=== PATIENT | male | born 1955 ===

== ENCOUNTER 2016-10-16 05:17 | Inpatient (IN) | payer OTHER ==
[2016-10-16] VITALS (19 sets, daily range): BP systolic 90–126; BP diastolic 50–75; PULSE 100–122; RESP 15–29; TEMP 100.3; Ht 170.2 cm; Wt 76.0 kg
[~2016-10-16] VITALS: Ht 170.2 cm; Wt 76.0 kg
[2016-10-16] MEDS ORDERED: ONDANSETRON 4 MG INJ IV PRN ×4 (05:30→22:30)
[2016-10-16] MEDS ORDERED: ACETAMINOPHEN 325 MG TAB PO PRN ×2 (05:30→22:30)
--- NOTE | 2016-10-16 05:40 | EN ---
Date/Time of Note Date/Time of Note DATE: 10/16/16 TIME: 05:38 ER Progress Note This is a 61-year-old male presenting from [facility] who will be boarding in the emergency room. The patient was seen at [facility] diagnosed with acute cholecystitis started on Zosyn and pain medication and presents for admission. He is capitated to our hospital but we do not have beds. He will be boarding in the emergency room. Upon arrival the patient has no complaints. General: Well developed, well nourished, no acute distress Head: Normocephalic, atraumatic Eyes: Pupils equally reactive, EOM intact ENT: Moist mucous membranes Neck: Supple, no lymphadenopathy Respiratory: Lungs clear bilaterally, no distress Cardiovascular: RRR, no murmurs, rubs, or gallops Abdominal: Soft, epigastric and right upper quadrant abdominal tenderness : Deferred MSK: No edema, no unilateral swelling, 5/5 strength Neurologic: Alert and oriented, moving all extremities, normal speech, no focal weakness, no cerebellar signs Skin: No rash Psych: Normal mood The patient is pending admission to the hospitalist team Accepting care team and consultations: I discussed the current laboratory data, diagnostic imaging and emergency care provided. Admitting team: Dr. Brunson Admitting team indication: Insurance directed DORIAN WILEY MD Oct 16, 2016 05:40
[2016-10-16] MEDS ORDERED: METF1000 PO (06:56)
[2016-10-16] MEDS ORDERED: LISI-313 PO (06:56)
[2016-10-16] MEDS ORDERED: ASPI-664 PO (06:57)
[2016-10-16] MEDS ORDERED: ATOR40TA68 PO (06:57)
[2016-10-16] MEDS ORDERED: LATA2.5D2 RIGHT EYE (06:58)
[2016-10-16] MEDS ORDERED: DESFLURANE 15 MIN ONE (07:00)
[2016-10-16] MEDS ORDERED: PIPER-TAZO 3.375 GM IV (PMX) 100 ML IVPB SCH ×2 (09:00→23:30)
[2016-10-16] MEDS: SOD CHLORIDE 0.9% 1,000 ML IV SCH (09:25)
[2016-10-16] MEDS: PIPER-TAZO 3.375 GM IV (PMX) 100 ML IVPB SCH ×2 (09:29→17:58)
[2016-10-16] MEDS ORDERED: HYPOGLYCEMIA PROTOCOL when Glucose is <70 mg/dL or symptomatic <90 mg/dL. XX ONE (09:30)
[2016-10-16] MEDS ORDERED: GLUCAGON 1 MG INJ IM PRN (09:30)
[2016-10-16] MEDS ORDERED: DEXTROSE 50% 50 ML SYRINGE IV PRN ×2 (09:30)
[2016-10-16] MEDS ORDERED: GLUCOSE GEL 15 GRAM TUBE BUCCAL PRN (09:30)
[2016-10-16] MEDS ORDERED: NACL 0.9% 3 ML SYG IV SCH (09:30)
[2016-10-16] MEDS ORDERED: GLUCOSE GEL 15 GRAM TUBE PO PRN ×2 (09:30)
[2016-10-16] MEDS ORDERED: Discontinue current oral sulfonylureas (glyburide, glipizide, and/or glimepiride) prior to XX ONE (09:30)
[2016-10-16] MEDS ORDERED: INSULIN ASPART [NOVOLOG] 3 ML PEN SC SCH (09:30)
[2016-10-16] MEDS: morphine 2 MG INJ IV PRN ×2 (09:34→17:37)
--- NOTE | 2016-10-16 09:37 | RADRPT ---
PROCEDURE: XR Chest 1 View. CLINICAL INDICATION: Shortness of breath and fever. TECHNIQUE: AP view of the chest was obtained. COMPARISON: None. FINDINGS: The cardiomediastinal silhouette is within normal limits. Elevated right hemidiaphragm is identified . Atelectasis is seen at the lung bases. No consolidations are identified. No pneumothorax is seen . Osseous structures are intact. IMPRESSION: Elevated right hemidiaphragm. Atelectasis at the lung bases. RPTAT: AA .Blake Vivas MD, MD Date Time Electronically viewed and signed by .Blake Vivas MD, on 10/16/2016 09:36 .P/
--- NOTE | 2016-10-16 09:49 | HP ---
Date/Time of Note Date/Time of Note DATE: 10/16/16 TIME: 09:38 Assessment/Plan VTE Prophylaxis VTE Prophylaxis Intervention: SCD's Assessment/Plan Chief Complaint/Hosp Course 1. Sepsis, most probably secondary to underlying cholecystitis. No evidence of any septic shock. The patient will be continued on antibiotics. The patient will be adequately hydrated. Will trend lactic acid levels. 2. Acute cholecystitis. The patient will be continued on empiric antibiotics. A general surgery consult has been obtained. The patient will be kept n.p.o. The patient was provided with adequate pain control. 3. Type 2 diabetes mellitus. Patient takes metformin at home. A hemoglobin A1c will be obtained. The patient's metformin will be held at this time. The patient will be started on sliding scale insulin. 4. Acute kidney injury. Most probably secondary to prerenal azotemia and underlying dehydration. The patient will be adequately hydrated. Nephrotoxic drugs will be used with caution. 5. Essential hypertension. The patient will be resumed on his home antihypertensives if his renal function is stable. 6. Dyslipidemia. The patient's statins will be held at this time because of underlying cholecystitis. Will obtain a fasting lipid panel. Plan: The patient will be admitted to inpatient medical surgical floor. The patient will be kept n.p.o. The patient will be started on DVT prophylaxis and gastrointestinal prophylaxis. The patient will remain a full code. Activities will be as tolerated. The rest of the patient's management will be based on the clinical course, inputs from consultants, and the results of diagnostic studies. Based on the patient's clinical presentation, he most probably requires at least 2 midnights' stay for further management and evaluation of his clinical presentation. The case and management of this patient was fully discussed with . Problems: HPI/ROS Admit Date/Time Admit Date/Time Hx of Present Illness Reason for admission: Abdominal pain. Consultants 1. Abhinav Jaime MD, General Surgery. This is a 61-year-old male with past medical history of type 2 diabetes mellitus, HTN, and dyslipidemia who went to a local emergency room because of right upper quadrant abdominal pain that has been going on for the past 3 days. The patient also verbalized 1 episode of nonbilious, nonbloody vomiting. The patient also verbalized subjective fevers. The patient denied any radiation of the pain to the back or elsewhere. Patient denied any prior history of any abdominal problems. The patient went to an outside ER where he was diagnosed with underlying cholecystitis. The patient was treated with IV Zosyn in the emergency room at the other facility. The patient was transferred to [facility] because of insurance reasons. The patient underwent a CT scan of the abdomen and pelvis at the outside facility that showed evidence of gallbladder sludge with gallbladder wall thickening and pericholecystic fluid. The patient was also noticed to have uncontrolled blood sugars at the other facility. The patient had evidence of some acute kidney injury from the labs at the other facility. In the emergency room at [facility] [the patient was held in the emergency room because of lack of inpatient beds], the patient was noticed to be febrile. The patient also had underlying sinus tachycardia. 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 Alcohol Use: none Smoking Status: Never smoker Drug Use: none Exam/Review of Systems Vital Signs Vitals Vital Signs Date Time Temp Pulse Resp B/P Pulse Ox O2 Delivery O2 Flow Rate FiO2 10/16/16 05:22 100.8 110 20 142/90 95 Exam Exam General: Adequately build 61 year-old male lying in bed in no apparent distress. HEENT: Normocephalic, atraumatic. Eyes: Anicteric sclerae, conjunctivae clear. ENT: Nasal septum midline, oral mucosa moist. Neck supple, no JVD noticed. Respiratory: Bilaterally clear breath sounds. No use of accessory muscles of respiration. No adventitious breath sounds. Cardiovascular: S1, S2 heard. No murmurs or gallops. Abdomen: Soft and nondistended. Bowel sounds positive in all 4 quadrants. Right upper quadrant tenderness. Genitourinary: Deferred. Extremities: No cyanosis, no clubbing, no edema. Peripheral pulses palpable. Neurologic: Cranial nerves II through XII grossly intact. The patient is awake, alert, and oriented. Skin: Normal skin turgor. No skin rashes. Medications Medications Current Medications Sodium Chloride (NS) 1,000 ml @ 125 mls/hr Q8H IV Last administered on 09:25; Admin Dose 125 MLS/HR; Start 10/16/16 at 09:10 Ondansetron HCl (Zofran Inj) 4 mg Q6H PRN IV NAUSEA AND/OR VOMITING; Start at 09:30 Acetaminophen (Tylenol Tab) 650 mg Q6H PRN PO PAIN LEVEL 1-3 OR FEVER; Start at 09:30 Morphine Sulfate (morphine) 2 mg Q4H PRN IV PAIN LEVEL 7-10 Last administered on 10/16/16 09:34; Admin Dose 2 MG; Start 10/16/16 at 09:30 Famotidine 20 mg 20 mg Q12 IV ; Start 10/16/16 at 21:00 Piperacillin Sod/ Tazobactam Sod (Zosyn 3.375gm/ 100 ml (Pmx)) 100 ml @ 200 mls /hr Q8 IVPB Last administered on 10/16/16 09:29; Admin Dose 200 MLS/HR; Start 10/16/16 at 09:30 Diagnostic Test (Pha) (Accu-Chek) 1 ea 02 XX ; Start 10/17/16 at 02:00 Insulin Aspart (Novolog Insulin Pen) NOVOLOG *MILD* ALGORITHM Q4H SC ; Start at 09:30 Miscellaneous Information 1 ea NOTE XX ; Start 10/16/16 at 09:30 Glucose (Glutose) 15 gm Q15M PRN PO DECREASED GLUCOSE; Start 10/16/16 at 09:30 Glucose (Glutose) 22.5 gm Q15M PRN PO DECREASED GLUCOSE; Start 10/16/16 at 09: 30 Dextrose (D50w Syringe) 25 ml Q15M PRN IV DECREASED GLUCOSE; Start 10/16/16 at 09:30 Dextrose (D50w Syringe) 50 ml Q15M PRN IV DECREASED GLUCOSE; Start 10/16/16 at 09:30 Glucagon (Glucagen) 1 mg Q15M PRN IM DECREASED GLUCOSE; Start 10/16/16 at 09:30 Glucose (Glutose) 15 gm Q15M PRN BUCCAL DECREASED GLUCOSE; Start 8/24/17 at 09 :30 ANDREW RUBI NP Oct 16, 2016 09:48
[2016-10-16] MEDS ORDERED: SOD CHLORIDE 0.9% 1,000 ML IV ONE (10:00)
--- NOTE | 2016-10-16 10:04 | RADRPT ---
PROCEDURE: Abdominal Ultrasound (right upper quadrant). CLINICAL INDICATION: Abdominal pain TECHNIQUE: Multiple real-time longitudinal and transverse images of the right upper quadrant of th e abdomen were acquired utilizing a curved array transducer. Images were reviewed on a high-resoluti on PACS workstation. COMPARISON: None FINDINGS: The liver is incompletely visualized. The visualized portions are within normal limits.. No focal masses are identified. There is borderline common bile duct dilatation, likely within normal limit s for a patient of this age. The common bile duct measures 6.4 mm in diameter. No gallstones are id entified. There is borderline nonspecific gallbladder wall thickening measuring 5 mm. The visualized portions of the pancreas are unremarkable with obscuration of the tail of the pancrea s. No free fluid is identified. There is no evidence of right hydronephrosis or renal calcification. The right kidney measures 11.4 cm in length. The visualized portions of the aorta and inferior vena cava are within normal limits. IMPRESSION: 1. Borderline common bile duct dilatation, likely within normal limits. Recommend correlation with serum bilirubin. 2. Borderline nonspecific gallbladder wall thickening. No gallstones identified. 3. Suboptimal visualization of the liver. 4. Otherwise unremarkable right upper quadrant ultrasound. RPTAT: KK .Artis Stiles MD, Date Time Electronically viewed and signed by .Artis Stiles MD, MD on 10/16/2016 10:03 .B/
[2016-10-16] MEDS ORDERED: hydrALAzine 20 MG INJ IV PRN ×2 (10:30→22:30)
[2016-10-16] MEDS: ACETAMINOPHEN 325 MG TAB PO PRN ×2 (10:49→19:06)
[2016-10-16 12:08] LABS: ABNORMAL IP MESSAGE 1; BASOPHILS % 0.2 % (0.0-2.0); HEMATOCRIT 31.3 % (42.0-52.0); LYMPHOCYTES # 0.9 10^3/ul (0.8-2.9); MEAN CORPUSCULAR HEMOGLOBIN 30.9 pg (29.0-33.0); MEAN CORPUSCULAR HGB CONC 35.1 g/dl (32.0-37.0); MEAN CORPUSCULAR VOLUME 87.9 fl (82.0-101.0); MEAN PLATELET VOLUME 11.1 fl (7.4-10.4); MONOCYTE # 1.6 10^3/ul (0.3-0.9); MONOCYTES % 8.8 % (0.0-11.0); NEUTROPHILS % 84.6 % (39.0-77.0); PLATELET COUNT 185 10^3/UL (140-415); POSITIVE DIFF @See below; RED BLOOD COUNT 3.56 10^6/ul (4.70-6.10); RED CELL DISTRIBUTION WIDTH 12.1 % (11.5-14.5); WHITE BLOOD COUNT 17.6 10^3/ul (4.8-10.8)
[2016-10-16 12:24] LABS: ALBUMIN 3.1 g/dl (3.3-4.9); ALBUMIN/GLOBULIN RATIO 0.93; BILIRUBIN,DIRECT 0.4 mg/dl (0.00-0.20); BILIRUBIN,INDIRECT 0.6 mg/dl (0-1.1); CALCIUM 7.7 mg/dl (8.4-10.2); CREATININE 0.84 mg/dl (0.61-1.24); POTASSIUM 3.8 mmol/L (3.5-5.1); TOTAL PROTEIN 6.4 g/dl (6.1-8.1)
[2016-10-16 12:26] LABS: MAGNESIUM 1.6 mg/dl (1.7-2.5)
[2016-10-16 12:27] LABS: INR 1.53; PROTIME 18.5 Sec (12.2-14.2); PT RATIO 1.4
[2016-10-16 12:37] LABS: CHOL/HDL RATIO 4.5 RATIO
[2016-10-16 13:09] LABS: ADD UMIC YES; UR ASCORBIC ACID 20 mg/dL (NEGATIVE); UR BILIRUBIN (Dip) NEGATIVE (NEGATIVE); UR BLOOD (Dip) NEGATIVE (NEGATIVE); UR CLARITY SLIGHTLY CLOUDY (CLEAR); UR COLOR AMBER (YELLOW); UR GLUCOSE (Dip) 3+ mg/dL (NEGATIVE); UR KETONES (Dip) 1+ mg/dL (NEGATIVE); UR LEUKOCYTE ESTERASE (Dip) NEGATIVE Leu/ul (NEGATIVE); UR NITRITE (Dip) NEGATIVE (NEGATIVE); UR RBC 1 /HPF (0-5); UR SPECIFIC GRAVITY (Dip) 1.023 (1.003-1.030); UR TOTAL PROTEIN (Dip) 2+ mg/dl (NEGATIVE); UR UROBILINOGEN (Dip) 2+ mg/dL (NEGATIVE)
[2016-10-16] MEDS ORDERED: MAGNESIUM SULFATE 2 GM/50 ML 50 ML IVPB ONE (13:30)
[2016-10-16] MEDS ORDERED: PHYTONADIONE 10 MG in DEXTROSE 5% 50 ML IVPB ONE (14:00)
--- NOTE | 2016-10-16 14:05 | CONS ---
Date/Time of Note Date/Time of Note DATE: 10/16/16 TIME: 13:59 Assessment/Plan Assessment/Plan Chief Complaint/Hosp Course 61-year-old male with acute cholecystitis * Ultrasound and CT scan were reviewed. Though the ultrasound does not show any gallstones, there is gallbladder wall thickening. The CT scan does show possible gallstone along with gallbladder wall thickening or pericholecystic fluid. I believe that there is a gallstone impacted in the neck of the gallbladder which is being missed by ultrasound. * Patient is febrile, with leukocytosis and signs of sepsis. Given his diabetes he is at high risk for quickly progressing to a gangrenous cholecystitis. Therefore, I would recommend urgent laparoscopic cholecystectomy ; possible open as medical necessity and definitive treatment to prevent further sequelae of gallstone disease which include, but are not limited to: Gangrenous cholecystitis, choledocholithiasis, gallstone pancreatitis, ascending cholangitis, sepsis, . This is been discussed with the patient in full detail along with all risks and benefits of the surgical procedure. He understands and agrees to proceed. * Continue n.p.o., aggressive IV fluid hydration, broad-spectrum intravenous antibiotics and pain control * Informed consent will be obtained and he will be scheduled for urgent surgical intervention. Problems: Consultation Date/Type/Reason Admit Date/Time Date of Consultation: Oct 16, 2016 Type of Consultation: GENERAL SURGERY Reason for Consultation Acute cholecystitis Hx of Present Illness Patient is a 61-year-old male with a history of diabetes who initially presented to [facility] complaining of a 2 day history of epigastric and right upper quadrant abdominal pain. This was associated with nausea and vomiting. He denies any diarrhea/constipation. He reports fever. He denies any similar episodes of pain in the past. The patient had an ultrasound which did not show any gallstones, however, did show gallbladder wall thickening. CT scan was done which did show the presence of gallstones as well as gallbladder wall thickening and pericholecystic fluid. He was also found to have a leukocytosis of 19,000 and was febrile. He was transferred to [facility] for insurance purposes. He is currently febrile with a T- max of 101.4. He is tachycardic. Blood pressure is stable. He remains with leukocytosis. He is still having some abdominal pain located in the right upper quadrant. A 14 point review of systems was conducted and was negative except for that which is mentioned in HPI Eyes: no complaints ENT: no complaints Respiratory: no complaints Cardiovascular: no complaints Gastrointestinal: nausea, pain, vomiting Genitourinary: no complaints Musculoskeletal: no complaints Skin: no complaints Neurologic: no complaints Lymphatic: no complaints Psychological: no complaints Immunologic: no complaints Past Medical History Medical History: diabetes, high cholesterol, hypertension Past Surgical History Past Surgical Hx: no surgical history Social History Alcohol Use: none Smoking Status: Never smoker Drug Use: none Exam/Review of Systems Vital Signs Vitals Vital Signs Date Time Temp Pulse Resp B/P Pulse Ox O2 Delivery O2 Flow Rate FiO2 10/16/16 12:00 100.3 10/16/16 10:00 113 19 117/73 96 Room Air Exam GENERAL: Awake, alert, oriented x 3. No acute distress. SKIN: No jaundice. HEENT: PERRLA, EOMI, No Scleral Icterus NECK: Supple without JVD CARDIOVASCULAR: S1S2, tachycardic. No murmurs appreciated. RESPIRATORY: Clear to auscultation bilaterally. ABDOMEN: Soft, bowel sounds present, nondistended, there is right upper quadrant tenderness to palpation. There is no evidence of diffuse peritonitis. EXTREMITIES: Free range of motion x 4. No cyanosis, edema, or clubbing. NEUROLOGIC: Cranial nerves II-XII are intact. Sensation is intact grossly. Results Result Diagram: 10/16/16 1148 10/16/16 1148 Results 24 hrs Laboratory Tests Test 10/16/16 09:38 10/16/16 10:30 10/16/16 11:48 10/16/16 12:00 Bedside Glucose 191 201 White Blood Count 17.6 H Red Blood Count 3.56 L Hemoglobin 11.0 L Hematocrit 31.3 L Mean Corpuscular Volume 87.9 Mean Corpuscular Hemoglobin 30.9 Mean Corpuscular Hemoglobin Concent 35.1 Red Cell Distribution Width 12.1 Platelet Count 185 Mean Platelet Volume 11.1 H Neutrophils % 84.6 H Lymphocytes % 5.0 L Monocytes % 8.8 Eosinophils % 0.0 Basophils % 0.2 Nucleated Red Blood Cells % 0.0 Neutrophils # (Manual) 14.9 H Lymphocytes # 0.9 Monocytes # 1.6 H Eosinophils # 0.0 Basophils # 0.0 Nucleated Red Blood Cells # 0.0 Prothrombin Time 18.5 H Prothrombin Time Ratio 1.4 INR International Normalized Ratio 1.53 Sodium Level 139 Potassium Level 3.8 Chloride Level 100 Carbon Dioxide Level 25 Anion Gap 18 H Blood Urea Nitrogen 19 Creatinine 0.84 Glucose Level 196 Lactic Acid Level 1.0 Calcium Level 7.7 L Phosphorus Level 2.0 L Magnesium Level 1.6 L Total Bilirubin 1.0 Direct Bilirubin 0.40 H Indirect Bilirubin 0.6 Aspartate Amino Transf (AST/SGOT) 85 H Alanine Aminotransferase (ALT/SGPT) 62 Alkaline Phosphatase 159 H Total Protein 6.4 Albumin 3.1 L Globulin 3.30 H Albumin/Globulin Ratio 0.93 Triglycerides Level 75 Cholesterol Level 118 LDL Cholesterol, Calculated 77 HDL Cholesterol 26 L Cholesterol/HDL Ratio 4.5 Urine Color ADAM Urine Clarity SLIGHTLY CLOUDY A Urine pH 5.0 Urine Specific [place] 1.023 Urine Ketones 1+ H Urine Nitrite NEGATIVE Urine Bilirubin NEGATIVE Urine Urobilinogen 2+ H Urine Leukocyte Esterase NEGATIVE Urine Microscopic RBC 1 Urine Microscopic WBC 2 Urine Hemoglobin NEGATIVE Urine Glucose 3+ H Urine Total Protein 2+ H Medications Medications Current Medications Sodium Chloride (NS) 1,000 ml @ 125 mls/hr Q8H IV Last administered on 09:25; Admin Dose 125 MLS/HR; Start 10/16/16 at 09:10 Ondansetron HCl (Zofran Inj) 4 mg Q6H PRN IV NAUSEA AND/OR VOMITING; Start at 09:30 Acetaminophen (Tylenol Tab) 650 mg Q6H PRN PO PAIN LEVEL 1-3 OR FEVER Last administered on 10/16/16 10:49; Admin Dose 650 MG; Start 10/16/16 at 09:30 Morphine Sulfate (morphine) 2 mg Q4H PRN IV PAIN LEVEL 7-10 Last administered on 10/16/16 09:34; Admin Dose 2 MG; Start 10/16/16 at 09:30 Famotidine 20 mg 20 mg Q12 IV ; Start 10/16/16 at 21:00 Piperacillin Sod/ Tazobactam Sod (Zosyn 3.375gm/ 100 ml (Pmx)) 100 ml @ 200 mls /hr Q8 IVPB Last administered on 10/16/16 09:29; Admin Dose 200 MLS/HR; Start 10/16/16 at 09:30 Diagnostic Test (Pha) (Accu-Chek) 1 XX ; Start 10/17/16 at 02:00 Insulin Aspart (Novolog Insulin Pen) NOVOLOG *MILD* ALGORITHM Q4H SC Last administered on 10/16/16t 10:36; Admin Dose 2 UNIT; Start 10/16/16 at 09:30 Miscellaneous Information 1 ea NOTE XX ; Start 10/16/16 at 09:30 Glucose (Glutose) 15 gm Q15M PRN PO DECREASED GLUCOSE; Start 10/16/16 at 09:30 Glucose (Glutose) 22.5 gm Q15M PRN PO DECREASED GLUCOSE; Start 10/16/16 at 09: 30 Dextrose (D50w Syringe) 25 ml Q15M PRN IV DECREASED GLUCOSE; Start 10/16/16 at 09:30 Dextrose (D50w Syringe) 50 ml Q15M PRN IV DECREASED GLUCOSE; Start 10/16/16 at 09:30 Glucagon (Glucagen) 1 mg Q15M PRN IM DECREASED GLUCOSE; Start 10/16/16 at 09:30 Glucose (Glutose) 15 gm Q15M PRN BUCCAL DECREASED GLUCOSE; Start 10/16/16 at 09 :30 Latanoprost (Xalatan) 1 drop QHS RIGHT EYE ; Start 10/16/16 at 21:00 Lisinopril (Zestril) 5 mg DAILY PO ; Start 10/17/16 at 09:00 Hydralazine HCl 10 mg 10 mg Q6H PRN IV SBP>160; Start 10/16/16 at 10:30 Magnesium Sulfate (Magnesium Sulfate 2 Gm/50 ml) 50 ml @ 25 mls/hr ONCE ONCE IVPB ; Start 10/16/16 at 13:30; Stop 10/16/16 at 15:29; Status MARY VELASQUEZ MD Oct 16, 2016 14:05
[2016-10-16] MEDS ORDERED: BUPIVACAINE 0.25% (MPF) 30 ML INJ ONE (20:15)
[2016-10-16] MEDS ORDERED: PROPOFOL 20 ML ONE (20:31)
[2016-10-16] MEDS ORDERED: LIDOCAINE 1% (MDV) 20 ML INJ ONE (20:31)
[2016-10-16] MEDS ORDERED: FENTAnyl 50 MCG/ML VIAL ONE ×2 (20:31→21:00)
[2016-10-16] MEDS ORDERED: ETOMIDATE 20 MG INJ ONE (20:31)
[2016-10-16] MEDS ORDERED: ROPIVACAINE 0.2% 20 ML VIAL ONE (20:41)
[2016-10-16] MEDS ORDERED: PHENYLephrine (100 MCG/ML) 5ML SYG ONE ×2 (20:47→21:04)
[2016-10-16] MEDS: LATANOPROST 0.005% 2.5 ML OPH RIGHT EYE SCH (21:00)
[2016-10-16] MEDS: FAMOTIDINE 20 MG INJ IV SCH (21:00)
[2016-10-16] MEDS ORDERED: METOCLOPRAMIDE 10 MG INJ ONE (21:25)
[2016-10-16] MEDS ORDERED: FAMOTIDINE 20 MG INJ ONE (21:25)
[2016-10-16] MEDS ORDERED: ONDANSETRON 4 MG INJ ONE (21:25)
[2016-10-16] MEDS ORDERED: SUGAMMADEX SODIUM 200 MG/2 ML VIAL IV ONE (22:22)
[2016-10-16] MEDS ORDERED: HYDROmorphONE 1 MG/ML SYG IV PRN (22:30)
[2016-10-16] MEDS ORDERED: LABETALOL HCL 20MG INJ IV PRN (22:30)
[2016-10-16] MEDS ORDERED: MEPERIDINE 25 MG INJ IV PRN (22:30)
[2016-10-16] MEDS ORDERED: HYDROCODONE/APAP (5/325) TAB PO PRN (22:30)
[2016-10-16] MEDS ORDERED: DIPHENHYDRAMINE 50 MG INJ IV PRN (22:30)
[2016-10-16] MEDS ORDERED: HYDROmorphONE (0.2 MG/ML) 10ML SYG IV PRN ×2 (22:30)
--- NOTE | 2016-10-16 22:33 | OPR ---
Date/Time of Note Date/Time of Note DATE: 10/16/16 TIME: 22:26 Operative Report Procedure Date: Oct 16, 2016 Preoperative Diagnosis Acute cholecystitis Postoperative Diagnosis Acute cholecystitis Operation Performed Laparoscopic cholecystectomy Surgeon: MARY PLATT MD Anesthesia Type: general Anesthesiologist: SHENG TEMPLETON DO Estimated Blood Loss: 10 - 50 ml's Transfusion Required: no Specimens 1. Gallbladder 2. Biliary cultures Grafts/Implants: none Complications: no Pt Condition Post Procedure: stable Disposition: PACU Indications The patient is a 61-year-old diabetic male who presented with a 2 day history of right upper quadrant abdominal pain. The patient had clinical signs and symptoms of acute cholecystitis which was confirmed via a CT scan. He was admitted, started on broad-spectrum intravenous antibiotics, IV fluids and pain control. The patient was scheduled for laparoscopic cholecystectomy; possible open as definitive treatment to prevent further sequelae of gallstone disease which include but are not limited to: Gangrenous cholecystitis, choledocholithiasis, gallstone pancreatitis, ascending cholangitis, etc. All risks and benefits of the procedure including but not limited to: Wound infection, excessive bleeding, common bile duct injury, postoperative biliary leak, retained common bile duct stone, injury to intra-abdominal organs, conversion to open procedure, possible need for subsequent surgeries, etc. were all explained to the patient in full detail. She fully understood and wished to proceed with the procedure. Informed consent was therefore obtained. Operative\Procedure Findings Acute cholecystitis with scarring in the area of the cystic duct structures. Dilated and redundant transverse colon Procedure Description The patient was brought to the operating room and placed supine on the operating table. Bilateral sequential compression devices were placed on both lower extremities. The patient had been maintained on broad-spectrum intravenous antibiotics while an inpatient on the floor. After the induction of smooth general endotracheal anesthesia the patient's abdomen was prepped and draped in the standard surgical fashion. After performance of the surgical timeout a 5 mm incision was made in the inferior umbilicus and a Veress needle was used to access the intra-abdominal cavity atraumatically. Pneumoperitoneum was then obtained and the Veress needle was exchanged for a 5 mm trocar through which a 5 mm laparoscope was placed. Three further working ports were then placed a 12 mm port in the sub-xiphoid region and two 5 mm ports in the right upper quadrant. All port sites were anesthetized with 0.25% Marcaine prior to incision. Diagnostic laparoscopy showed a dilated and redundant transverse colon. The omentum was plastered up in the right upper quadrant in the area of the gallbladder. Using blunt dissection the omentum was swept off of the gallbladder. Distended, erythematous and inflamed gallbladder was identified. The gallbladder could not be grasped at this point using atraumatic graspers. Using a decompressing needle inserted through the lateralmost port site approximately 130 ml of dark bile was aspirated from the gallbladder. A sample of fluid was sent for cultures and microbiological analysis. This enabled the gallbladder to be grasped. Using atraumatic graspers the gallbladder was grasped and retracted superiorly and laterally exposing the area of Peralta's pouch. There was a lot of fat and inflammatory adhesions in this area. Dissection was begun in this area using a combination of blunt dissection and hook electrocautery. After much tedious dissection the cystic duct was identified as it entered straight into the neck of the gallbladder. It was dissected free of surrounding inflammatory tissues and clipped proximally and distally x 3 and transected using EndoShears. Dissection was then continued posteriorly. The cystic artery was identified and dissected free of surrounding tissues. It was clipped proximally x 1 and transected distally using the hook electrocautery. The gallbladder was then dissected off the liver bed using electrocautery. Due to the acute inflammation the gallbladder was very friable and was peeling off the liver bed. This is where most of the blood loss of the procedure was encountered. Once completely free the gallbladder was placed in an Endo Catch bag and withdrawn through the subxiphoid port site and passed off the field as specimen. Hemostasis was then inspected for and obtained on the liver bed using a combination of hook electrocautery and placement of fibrillar. The abdomen was then irrigated with several liters of warm normal saline and the irrigant returned crystal clear. Pneumoperitoneum was then released and all trochars were withdrawn under direct vision. The fascia of the subxiphoid port site was reapproximated using 0 Vicryl sutures in running fashion. The subcutaneous tissues were irrigated with more warm normal saline and further local anesthesia was applied around the skin of the incision sites. The skin was then reapproximated using skin humble. The incisions were cleaned and sterile dressings were applied to the incisions and the patient was awoken from anesthesia and transported to the recovery room in stable condition. All counts were correct at the end of the case x 2. MARY PLATT MD Oct 16, 2016 22:33
[2016-10-17] VITALS (14 sets, daily range): BP systolic 99–134; BP diastolic 56–66; PULSE 82–102; RESP 18–20
[2016-10-17] MEDS: SOD CHLORIDE 0.9% 1,000 ML IV SCH ×4 (00:47→16:56)
[2016-10-17] MEDS: PIPER-TAZO 3.375 GM IV (PMX) 100 ML IVPB SCH ×4 (00:47→21:41)
[2016-10-17] MEDS ORDERED: Insulin NOVOLOG SS MILD Algorithm (NPO/TPN/ENTERAL FEEDS) SC SCH (01:00)
[2016-10-17] MEDS: ACCU-CHEK XX SCH (01:50)
[2016-10-17] MEDS ORDERED: ACCU-CHEK XX SCH ×2 (02:00)
[2016-10-17 06:05] LABS: BASOPHILS % 0.1 % (0.0-2.0); HEMATOCRIT 29.9 % (42.0-52.0); HEMOGLOBIN 9.8 g/dl (14.0-18.0); LYMPHOCYTES # 0.9 10^3/ul (0.8-2.9); LYMPHOCYTES % 6.5 % (15.0-51.0); MEAN CORPUSCULAR HEMOGLOBIN 29.3 pg (29.0-33.0); MEAN CORPUSCULAR HGB CONC 32.8 g/dl (32.0-37.0); MEAN CORPUSCULAR VOLUME 89.5 fl (82.0-101.0); MEAN PLATELET VOLUME 11.6 fl (7.4-10.4); MONOCYTE # 0.9 10^3/ul (0.3-0.9); MONOCYTES % 6.7 % (0.0-11.0); PLATELET COUNT 165 10^3/UL (140-415); RED BLOOD COUNT 3.34 10^6/ul (4.70-6.10); WHITE BLOOD COUNT 13.5 10^3/ul (4.8-10.8)
[2016-10-17 06:31] LABS: PHOSPHORUS 2.5 mg/dl (2.5-4.9)
[2016-10-17 06:57] LABS: ALBUMIN 2.7 g/dl (3.3-4.9); ALBUMIN/GLOBULIN RATIO 0.9; BILIRUBIN,INDIRECT 0.2 mg/dl (0-1.1); BILIRUBIN,TOTAL 0.2 mg/dl (0.2-1.3); CALCIUM 7.4 mg/dl (8.4-10.2); CREATININE 0.85 mg/dl (0.61-1.24); POTASSIUM 4.2 mmol/L (3.5-5.1); TOTAL PROTEIN 5.7 g/dl (6.1-8.1)
[2016-10-17] MEDS: morphine 2 MG INJ IV PRN (07:55)
[2016-10-17] MEDS: FAMOTIDINE 20 MG INJ IV SCH ×2 (08:42→20:37)
[2016-10-17] MEDS: DOCUSATE SODIUM 100 MG CAP PO SCH ×2 (08:42→20:37)
[2016-10-17] MEDS: LISINOPRIL 5 MG TAB PO SCH (08:43)
[2016-10-17] MEDS: INSULIN ASPART [NOVOLOG] 3 ML PEN SC SCH ×4 (08:54→20:43)
--- NOTE | 2016-10-17 09:42 | PN ---
Date/Time of Note Date/Time of Note DATE: 10/17/16 TIME: 09:40 Assessment/Plan Lines/Catheters IV Catheter Type (from Nrs): Saline Lock Naylor in Place (from Nrs): No Assessment/Plan Assessment/Plan 61-year-old male with acute cholecystitis status post laparoscopic cholecystectomy postop day #1 * Improved * Advance to diabetic diet * Hep-Lock IV * Out of bed/incentive spirometry * Leukocytosis improved * Continue antibiotics Subjective 24 Hr Interval Summary Feels much better. Abdominal pain is controlled. Fever and tachycardia resolved. Exam/Review of Systems Vital Signs Vitals Vital Signs Date Time Temp Pulse Resp B/P Pulse Ox O2 Delivery O2 Flow Rate FiO2 10/17/16 07:48 98.0 81 19 98 10/17/16 05:26 Nasal Cannula 2.0 Intake and Output 10/16/16 10/16/16 10/17/16 15:00 23:00 07:00 Intake Total 1400 ml 2500 ml 950 ml Output Total 5 ml 700 ml Balance 1400 ml 2495 ml 250 ml Exam Free Text/Dictation GENERAL: Awake, alert, oriented x 3. No acute distress. SKIN: No jaundice. HEENT: PERRLA, EOMI, No Scleral Icterus CARDIOVASCULAR: S1S2, tachycardic. No murmurs appreciated. RESPIRATORY: Clear to auscultation bilaterally. ABDOMEN: Soft, bowel sounds present, nondistended, appropriate incisional tenderness to palpation DRESSINGS: Minimal saturation of umbilical dressing. The rest are clean and dry. EXTREMITIES: Free range of motion x 4. No cyanosis, edema, or clubbing. Results Result Diagram: 10/17/16 0445 10/17/16 0445 MARY PLATT MD Oct 17, 2016 09:42
--- NOTE | 2016-10-17 13:20 | PN ---
Date/Time of Note Date/Time of Note DATE: 10/17/16 TIME: 13:13 Assessment/Plan VTE Prophylaxis VTE Prophylaxis Intervention: ambulation, SCD's Lines/Catheters IV C[facility]ter Type (from [facility]): Saline Lock Urinary Cath still in place: No Assessment/Plan Chief Complaint/Hosp Course 1. Sepsis secondary to underlying cholecystitis. No evidence of any septic shock. The patient will be continued on antibiotics. 2. Acute cholecystitis. Status post laparoscopic cholecystectomy on 2016. Continue postoperative care. 3. Type 2 diabetes mellitus. Hemoglobin A1c 6.8. The patient will be continued on sliding scale insulin. 4. Acute kidney injury. Most probably secondary to prerenal azotemia and underlying dehydration. Resolved. 5. Essential hypertension. The patient will be resumed on his home antihypertensives if his renal function is stable. 6. Dyslipidemia. Fasting lipid panel satisfactory. Will continue statins. 7. Fluids, electrolytes, and nutrition. Carbohydrate controlled diet. 8. DVT prophylaxis. Bilateral sequential compression devices. Ambulation. 9. Plan. Continue IV antibiotics. Continue for contamination of frequent use of incentive spirometry. Await surgical clearance before discharge. Case discussed with Dr. Lopez. Problems: Subjective 24 Hr Interval Summary Free Text/Dictation Pain well controlled. Exam/Review of Systems Vital Signs Vitals Vital Signs Date Time Temp Pulse Resp B/P Pulse Ox O2 Delivery O2 Flow Rate FiO2 10/17/16 07:48 98.0 81 19 98 10/17/16 05:26 Nasal Cannula 2.0 Intake and Output 10/16/16 10/16/16 10/17/16 15:00 23:00 07:00 Intake Total 1400 ml 2500 ml 950 ml Output Total 5 ml 700 ml Balance 1400 ml 2495 ml 250 ml Exam General: Adequately build 61 year-old male lying in bed in no apparent distress. HEENT: Normocephalic, atraumatic. Eyes: Anicteric sclerae, conjunctivae clear. ENT: Nasal septum midline, oral mucosa moist. Neck supple, no JVD noticed. Respiratory: Bilaterally clear breath sounds. No use of accessory muscles of respiration. No adventitious breath sounds. Cardiovascular: S1, S2 heard. No murmurs or gallops. Abdomen: Soft and nondistended. Bowel sounds hypoactive in all 4 quadrants. Lalita -incisional tenderness. Genitourinary: Deferred. Extremities: No cyanosis, no clubbing, no edema. Peripheral pulses palpable. Neurologic: Cranial nerves II through XII grossly intact. The patient is awake, alert, and oriented. Skin: Normal skin turgor. No skin rashes. Results Result Diagram: 10/17/165 10/17/16 0445 Results 24 hrs Laboratory Tests Test 10/16/16 16:01 10/16/16 18:00 10/17/16 00:52 10/17/16 04:45 Lactic Acid Level 1.1 Bedside Glucose 183 242 H White Blood Count 13.5 #H Red Blood Count 3.34 L Hemoglobin 9.8 L Hematocrit 29.9 L Mean Corpuscular Volume 89.5 Mean Corpuscular Hemoglobin 29.3 Mean Corpuscular Hemoglobin Concent 32.8 Red Cell Distribution Width 13.0 Platelet Count 165 Mean Platelet Volume 11.6 H Neutrophils % 86.0 H Lymphocytes % 6.5 L Monocytes % 6.7 Eosinophils % 0.0 Basophils % 0.1 Nucleated Red Blood Cells % 0.0 Neutrophils # (Manual) 11.6 H Lymphocytes # 0.9 Monocytes # 0.9 Eosinophils # 0.0 Basophils # 0.0 Nucleated Red Blood Cells # 0.0 Sodium Level 140 Potassium Level 4.2 Chloride Level 104 Carbon Dioxide Level 24 Anion Gap 16 Blood Urea Nitrogen 19 Creatinine 0.85 Glucose Level 214 Calcium Level 7.4 L Phosphorus Level 2.5 Magnesium Level 2.0 Total Bilirubin 0.2 Direct Bilirubin 0.00 # Indirect Bilirubin 0.2 Aspartate Amino Transf (AST/SGOT) 68 H Alanine Aminotransferase (ALT/SGPT) 67 Alkaline Phosphatase 182 H Total Protein 5.7 L Albumin 2.7 L Globulin 3.00 Albumin/Globulin Ratio 0.90 Test 10/17/16 08:49 10/17/16 13:08 Bedside Glucose 178 177 Medications Medications Current Medications Sodium Chloride (NS) 1,000 ml @ 125 mls/hr Q8H IV Last administered on 00:47; Admin Dose 125 MLS/HR; Start 10/16/16 at 09:10 Ondansetron HCl (Zofran Inj) 4 mg Q6H PRN IV NAUSEA AND/OR VOMITING; Start at 09:30 Acetaminophen (Tylenol Tab) 650 mg Q6H PRN PO PAIN LEVEL 1-3 OR FEVER Last administered on 10/16/16 19:06; Admin Dose 650 MG; Start 10/16/16 at 09:30 Morphine Sulfate (morphine) 2 mg Q4H PRN IV PAIN LEVEL 7-10 Last administered on 10/17/16 07:55; Admin Dose 2 MG; Start 10/16/16 at 09:30 Famotidine (Pepcid Iv) 20 mg Q12 IV Last administered on 10/17/16 08:42; Admin Dose 20 MG; Start 10/16/16 at 21:00 Miscellaneous Information 1 ea NOTE XX ; Start 10/16/16 at 09:30 Glucose (Glutose) 15 gm Q15M PRN PO DECREASED GLUCOSE; Start 10/16/16 at 09:30 Glucose (Glutose) 22.5 gm Q15M PRN PO DECREASED GLUCOSE; Start 10/16/16 at 09: 30 Dextrose (D50w Syringe) 25 ml Q15M PRN IV DECREASED GLUCOSE; Start 10/16/16 at 09:30 Dextrose (D50w Syringe) 50 ml Q15M PRN IV DECREASED GLUCOSE; Start 10/16/16 at 09:30 Glucagon (Glucagen) 1 mg Q15M PRN IM DECREASED GLUCOSE; Start 10/16/16 at 09:30 Glucose (Glutose) 15 gm Q15M PRN BUCCAL DECREASED GLUCOSE; Start 10/16/16 at 09 :30 Latanoprost (Xalatan) 1 drop QHS RIGHT EYE ; Start 10/16/16 at 21:00 Lisinopril (Zestril) 5 mg DAILY PO Last administered on 10/17/16 08:43; Admin Dose 5 MG; Start 10/17/16 at 09:00 Hydralazine HCl (Apresoline) 10 mg Q6H PRN IV SBP>160; Start 10/16/16 at 10:30 Hydromorphone HCl (Dilaudid) 0.5 mg Q6H PRN IV PAIN LEVEL 6-10; Start 10/16/16 at 22:30 Acetaminophen/ Hydrocodone Bitart ([place] (5/325)) 1 tab Q6H PRN PO PAIN LEVEL 6 -10; Start 10/16/16 at 22:30 Acetaminophen (Tylenol Tab) 650 mg Q6H PRN PO PAIN AND OR ELEVATED TEMP; Start 10/16/16 at 22:30 Ondansetron HCl (Zofran Inj) 4 mg Q6H PRN IV NAUSEA AND/OR VOMITING; Start at 22:30 Docusate Sodium (Colace) 100 mg BID PO Last administered on 10/17/16 08:42; Admin Dose 100 MG; Start 10/17/16 at 09:00 Acetaminophen/ Hydrocodone Bitart 2 tab 2 tab Q4H PRN PO MODERATE PAIN LEVEL 4- 6; Start 10/16/16 at 22:30 Piperacillin Sod/ Tazobactam Sod (Zosyn 3.375gm/ 100 ml (Pmx)) 100 ml @ 200 mls /hr Q8 IVPB Last administered on 10/17/16 05:53; Admin Dose 200 MLS/HR; Start 10/17/16 at 00:45 Diagnostic Test (Pha) (Accu-Chek) 1 ea 02 XX ; Start 10/17/16 at 02:00 ANDREW RUBI NP Oct 17, 2016 13:20
[2016-10-17] MEDS: HYDROCODONE/APAP (5/325) TAB PO PRN (14:56)
[2016-10-17] MEDS: ATORVASTATIN 40 MG TAB PO SCH (20:37)
[2016-10-17] MEDS: LATANOPROST 0.005% 2.5 ML OPH RIGHT EYE SCH (20:45)
[2016-10-18] VITALS: BP 136/61; PULSE 78; RESP 18
[2016-10-18] MEDS: SOD CHLORIDE 0.9% 1,000 ML IV SCH ×3 (01:10→17:10)
[2016-10-18 02:00] VITALS: BP 113/63; RESP 20
[2016-10-18] MEDS: ACCU-CHEK XX SCH (02:15)
[2016-10-18 04:00] VITALS: BP 125/60; PULSE 77; RESP 18
[2016-10-18 05:31] LABS: BASOPHILS % 0.3 % (0.0-2.0); EOSINOPHILS % 0.2 % (0.0-7.0); HEMATOCRIT 28.9 % (42.0-52.0); HEMOGLOBIN 9.5 g/dl (14.0-18.0); LYMPHOCYTES % 8.8 % (15.0-51.0); MEAN CORPUSCULAR HEMOGLOBIN 29.2 pg (29.0-33.0); MEAN CORPUSCULAR HGB CONC 32.9 g/dl (32.0-37.0); MEAN CORPUSCULAR VOLUME 88.9 fl (82.0-101.0); MEAN PLATELET VOLUME 11.3 fl (7.4-10.4); MONOCYTE # 0.8 10^3/ul (0.3-0.9); MONOCYTES % 6.6 % (0.0-11.0); NEUTROPHILS % 83.7 % (39.0-77.0); PLATELET COUNT 199 10^3/UL (140-415); RED BLOOD COUNT 3.25 10^6/ul (4.70-6.10); RED CELL DISTRIBUTION WIDTH 12.9 % (11.5-14.5); WHITE BLOOD COUNT 11.8 10^3/ul (4.8-10.8)
[2016-10-18 05:32] LABS: ALBUMIN 2.7 g/dl (3.3-4.9); ALBUMIN/GLOBULIN RATIO 0.87; BILIRUBIN,INDIRECT 0.3 mg/dl (0-1.1); BILIRUBIN,TOTAL 0.3 mg/dl (0.2-1.3); CALCIUM 7.4 mg/dl (8.4-10.2); CREATININE 0.79 mg/dl (0.61-1.24); MAGNESIUM 2.3 mg/dl (1.7-2.5); PHOSPHORUS 1.2 mg/dl (2.5-4.9); POTASSIUM 3.8 mmol/L (3.5-5.1); TOTAL PROTEIN 5.8 g/dl (6.1-8.1)
[2016-10-18] MEDS: PIPER-TAZO 3.375 GM IV (PMX) 100 ML IVPB SCH ×3 (05:50→21:52)
[2016-10-18 07:00] VITALS: BP 123/73; RESP 20
[2016-10-18] MEDS: DOCUSATE SODIUM 100 MG CAP PO SCH ×2 (08:55→20:19)
[2016-10-18] MEDS: FAMOTIDINE 20 MG INJ IV SCH ×2 (08:55→20:19)
[2016-10-18] MEDS: LISINOPRIL 5 MG TAB PO SCH (08:55)
[2016-10-18] MEDS: INSULIN ASPART [NOVOLOG] 3 ML PEN SC SCH ×4 (08:56→20:26)
--- NOTE | 2016-10-18 09:30 | PN ---
Date/Time of Note Date/Time of Note DATE: 10/18/16 TIME: 09:28 Assessment/Plan Lines/Catheters IV Catheter Type (from Nrsg): Saline Lock Naylor in Place (from Nrsg): No Assessment/Plan Assessment/Plan 61-year-old male with acute cholecystitis status post laparoscopic cholecystectomy postop day #2 * Surgically stable for discharge home on PO antibiotics and pain control when medically cleared * Follow up in office in 1 week Subjective 24 Hr Interval Summary Feeling well. Tolerating regular diet. Afebrile. Exam/Review of Systems Vital Signs Vitals Vital Signs Date Time Temp Pulse Resp B/P Pulse Ox O2 Delivery O2 Flow Rate FiO2 10/18/16 07:00 98.7 106 20 123/73 97 10/18/16 04:00 Room Air 10/17/16 05:26 2.0 Intake and Output 10/17/16 10/17/16 10/18/16 15:00 23:00 07:00 Intake Total 600 ml 1020 ml 1200 ml Output Total 1100 ml Balance 600 ml 1020 ml 100 ml Exam Free Text/Dictation GENERAL: Awake, alert, oriented x 3. No acute distress. SKIN: No jaundice. HEENT: PERRLA, EOMI, No Scleral Icterus CARDIOVASCULAR: S1S2, RRR. No murmurs appreciated. RESPIRATORY: Clear to auscultation bilaterally. ABDOMEN: Soft, bowel sounds present, nondistended, appropriate incisional tenderness to palpation INCISIONS: clean, dry, intact EXTREMITIES: Free range of motion x 4. No cyanosis, edema, or clubbing. Results Result Diagram: 10/18/16 0422 10/18/16 0422 MARY PLATT MD Oct 18, 2016 09:30
[2016-10-18 14:00] VITALS: BP 122/70; PULSE 92; RESP 17
--- NOTE | 2016-10-18 16:00 | PDOCDIS ---
Discharge Instructions CONDITION Patient Condition: Stable HOME CARE INSTRUCTIONS: Special Diet: Diabetic diet ACTIVITY: Activity Restrictions: Slowly Increase Activity Avoid heavy lifting Avoid Heavy Housework FOLLOW UP/APPOINTMENTS Follow-up Plan Follow-up with Dr. Jaime in 1 week OTHER ORDERS: Other Orders: Call 911 and go to the nearest ER if you have severe abdominal pain, vomiting, unable to have bowel movement, chest pain, shortness of breath, fever, chills or bleeding JACOB OROZCO MD Oct 18, 2016 16:00
--- NOTE | 2016-10-18 16:07 | PN ---
Date/Time of Note Date/Time of Note DATE: 10/18/16 TIME: 16:02 Assessment/Plan VTE Prophylaxis VTE Prophylaxis Intervention: SCD's Lines/Catheters IV Catheter Type (from Nrs): Saline Lock Urinary Cath still in place: No Assessment/Plan Assessment/Plan 1. Status post sepsis, secondary to cholecystitis, status post lap choley -Body fluid with a gram-negative ange -Follow-up final culture results -Continue current antibiotic -Continue pain management -We will await final body fluid culture results with the speciation and sensitivity before discharge 2. Type 2 diabetes mellitus. Hemoglobin A1c 6.8. Continue insulin with adjustment as needed 3. Acute kidney injury: Resolved 4. Hypertension: BP within acceptable range -Continue meds with adjustment as needed 5. Dyslipidemia. Continue statin. Subjective 24 Hr Interval Summary Free Text/Dictation No acute distress Exam/Review of Systems Vital Signs Vitals Vital Signs Date Time Temp Pulse Resp B/P Pulse Ox O2 Delivery O2 Flow Rate FiO2 10/18/16 07:00 98.7 106 20 123/73 97 10/18/16 04:00 Room Air 10/17/16 05:26 2.0 Intake and Output 10/17/16 10/17/16 10/18/16 15:00 23:00 07:00 Intake Total 600 ml 1020 ml 1200 ml Output Total 1100 ml Balance 600 ml 1020 ml 100 ml Exam Constitutional: alert, oriented, well developed Head: atraumatic, normocephalic Eyes: EOMI, PERRL Respiratory: clear to auscultation, normal air movement Cardiovascular: nl pulses, regular rate and rhythm Gastrointestinal: non-tender, soft Extremities: normal pulses Results Result Diagram: 10/18/16 0422 10/18/16 0422 Results 24 hrs Laboratory Tests Test 10/17/16 18:06 10/17/16 20:41 10/18/16 02:13 10/18/16 04:22 Bedside Glucose 189 196 182 White Blood Count 11.8 H Red Blood Count 3.25 L Hemoglobin 9.5 L Hematocrit 28.9 L Mean Corpuscular Volume 88.9 Mean Corpuscular Hemoglobin 29.2 Mean Corpuscular Hemoglobin Concent 32.9 Red Cell Distribution Width 12.9 Platelet Count 199 # Mean Platelet Volume 11.3 H Neutrophils % 83.7 H Lymphocytes % 8.8 L Monocytes % 6.6 Eosinophils % 0.2 Basophils % 0.3 Nucleated Red Blood Cells % 0.0 Neutrophils # (Manual) 9.9 H Lymphocytes # 1.0 Monocytes # 0.8 Eosinophils # 0.0 Basophils # 0.0 Nucleated Red Blood Cells # 0.0 Sodium Level 138 Potassium Level 3.8 Chloride Level 101 Carbon Dioxide Level 27 Anion Gap 14 Blood Urea Nitrogen 15 Creatinine 0.79 Glucose Level 182 Calcium Level 7.4 L Phosphorus Level 1.2 #L Magnesium Level 2.3 Total Bilirubin 0.3 Direct Bilirubin 0.00 Indirect Bilirubin 0.3 Aspartate Amino Transf (AST/SGOT) 44 Alanine Aminotransferase (ALT/SGPT) 57 Alkaline Phosphatase 198 H Total Protein 5.8 L Albumin 2.7 L Globulin 3.10 Albumin/Globulin Ratio 0.87 Test 10/18/16 08:31 10/18/16 12:17 Bedside Glucose 171 166 Medications Medications Current Medications Sodium Chloride (NS) 1,000 ml @ 125 mls/hr Q8H IV Last administered on 00:47; Admin Dose 125 MLS/HR; Start 10/16/16 at 09:10 Ondansetron HCl (Zofran Inj) 4 mg Q6H PRN IV NAUSEA AND/OR VOMITING; Start at 09:30 Acetaminophen (Tylenol Tab) 650 mg Q6H PRN PO PAIN LEVEL 1-3 OR FEVER Last administered on 10/16/16 19:06; Admin Dose 650 MG; Start 10/16/16 at 09:30 Morphine Sulfate (morphine) 2 mg Q4H PRN IV PAIN LEVEL 7-10 Last administered on 10/17/16 07:55; Admin Dose 2 MG; Start 10/16/16 at 09:30 Famotidine (Pepcid Iv) 20 mg Q12 IV Last administered on 10/18/16 08:55; Admin Dose 20 MG; Start 10/16/16 at 21:00 Miscellaneous Information 1 ea NOTE XX ; Start 10/16/16 at 09:30 Glucose (Glutose) 15 gm Q15M PRN PO DECREASED GLUCOSE; Start 10/16/16 at 09:30 Glucose (Glutose) 22.5 gm Q15M PRN PO DECREASED GLUCOSE; Start 10/16/16 at 09: 30 Dextrose (D50w Syringe) 25 ml Q15M PRN IV DECREASED GLUCOSE; Start 10/16/16 at 09:30 Dextrose (D50w Syringe) 50 ml Q15M PRN IV DECREASED GLUCOSE; Start 10/16/16 at 09:30 Glucagon (Glucagen) 1 mg Q15M PRN IM DECREASED GLUCOSE; Start 10/16/16 at 09:30 Glucose (Glutose) 15 gm Q15M PRN BUCCAL DECREASED GLUCOSE; Start 10/16/16 at 09 :30 Latanoprost (Xalatan) 1 drop QHS RIGHT EYE Last administered on 10/17/16 20:45 ; Admin Dose 1 DROP; Start 10/16/16 at 21:00 Lisinopril (Zestril) 5 mg DAILY PO Last administered on 10/18/16 08:55; Admin Dose 5 MG; Start 10/17/16 at 09:00 Hydralazine HCl (Apresoline) 10 mg Q6H PRN IV SBP>160; Start 10/16/16 at 10:30 Hydromorphone HCl (Dilaudid) 0.5 mg Q6H PRN IV PAIN LEVEL 6-10; Start 10/16/16 at 22:30 Acetaminophen/ Hydrocodone Bitart ([place] (5/325)) 1 tab Q6H PRN PO PAIN LEVEL 6 -10; Start 10/16/16 at 22:30 Acetaminophen (Tylenol Tab) 650 mg Q6H PRN PO PAIN AND OR ELEVATED TEMP; Start 10/16/16 at 22:30 Ondansetron HCl (Zofran Inj) 4 mg Q6H PRN IV NAUSEA AND/OR VOMITING; Start at 22:30 Docusate Sodium (Colace) 100 mg BID PO Last administered on 10/18/16 08:55; Admin Dose 100 MG; Start 10/17/16 at 09:00 Acetaminophen/ Hydrocodone Bitart 2 tab 2 tab Q4H PRN PO MODERATE PAIN LEVEL 4- 6 Last administered on 10/17/16 14:56; Admin Dose 2 TAB; Start 10/16/16 at 22: 30 Piperacillin Sod/ Tazobactam Sod (Zosyn 3.375gm/ 100 ml (Pmx)) 100 ml @ 200 mls /hr Q8 IVPB Last administered on 10/18/16 13:44; Admin Dose 200 MLS/HR; Start 10/17/16 at 00:45 Diagnostic Test (Pha) (Accu-Chek) 1 ea 02 XX Last administered on 10/18/16 02: 15; Admin Dose 1 EA; Start 10/17/16 at 02:00 Atorvastatin Calcium (Lipitor) 40 mg QHS PO Last administered on 10/17/16 20: 37; Admin Dose 40 MG; Start 10/17/16 at 21:00 JACOB OROZCO MD Oct 18, 2016 16:07
[2016-10-18] MEDS: HYDROCODONE/APAP (5/325) TAB PO PRN (17:05)
[2016-10-18 20:00] VITALS: BP 120/70; RESP 20
[2016-10-18] MEDS: ATORVASTATIN 40 MG TAB PO SCH (20:19)
[2016-10-18] MEDS: LATANOPROST 0.005% 2.5 ML OPH RIGHT EYE SCH (20:34)
[2016-10-19] MEDS: SOD CHLORIDE 0.9% 1,000 ML IV SCH ×2 (01:10→09:10)
[2016-10-19] MEDS: ACCU-CHEK XX SCH (02:00)
[2016-10-19 02:57] VITALS: BP 156/78; RESP 20
[2016-10-19] MEDS: PIPER-TAZO 3.375 GM IV (PMX) 100 ML IVPB SCH ×2 (05:50→14:00)
[2016-10-19 08:00] VITALS: BP 131/73; RESP 20
[2016-10-19] MEDS: INSULIN ASPART [NOVOLOG] 3 ML PEN SC SCH ×2 (09:03→12:50)
[2016-10-19] MEDS: FAMOTIDINE 20 MG INJ IV SCH (09:03)
[2016-10-19] MEDS: DOCUSATE SODIUM 100 MG CAP PO SCH (09:04)
[2016-10-19] MEDS: LISINOPRIL 5 MG TAB PO SCH (09:04)
[2016-10-19] MEDS ORDERED: BISACODYL (EC) 5 MG TAB PO PRN (09:30)
[2016-10-19] MEDS ORDERED: DOCUSATE SODIUM 100 MG CAP PO SCH (09:30)
[2016-10-19] MEDS ORDERED: POLYETHYLENE GLYCOL 17 GM PACKET PO SCH (09:30)
[2016-10-19] MEDS ORDERED: HYDR-3498 PO (12:49)
[2016-10-19] MEDS ORDERED: DOCU-216 PO (12:49)
[2016-10-19] MEDS ORDERED: CIPR500T4 PO (12:49)
--- NOTE | 2016-10-19 13:04 | DS ---
Date/Time of Note Date/Time of Note DATE: 10/19/16 TIME: 13:02 Discharge Summary Admission/Discharge Info Admit Date/Time Oct 16, 2016 at 05:25 Discharge Date/Time Discharge Diagnosis 1. Acute cholecystitis. Status post laparoscopic cholecystectomy. 2. Status post sepsis secondary to acute cholecystitis. 3. Essential hypertension. 4. Dyslipidemia. 5. Type 2 diabetes mellitus. Patient Condition: Stable Consults Abhinav Jaime MD, General Surgery. Procedures Gallbladder Ultrasound IMPRESSION: 1. Borderline common bile duct dilatation, likely within normal limits. Recommend correlation with serum bilirubin. 2. Borderline nonspecific gallbladder wall thickening. No gallstones identified. 3. Suboptimal visualization of the liver. 4. Otherwise unremarkable right upper quadrant ultrasound. Procedure Date: Oct 16, 2016 Preoperative Diagnosis Acute cholecystitis Postoperative Diagnosis Acute cholecystitis Operation Performed Laparoscopic cholecystectomy Hx of Present Illness Reason for admission: Abdominal pain. Consultants 1. Abhinav Jaime MD, General Surgery. This is a 61-year-old male with past medical history of type 2 diabetes mellitus, HTN, and dyslipidemia who went to a local emergency room because of right upper quadrant abdominal pain that has been going on for 3 days. The patient also verbalized 1 episode of nonbilious, nonbloody vomiting. The patient also verbalized subjective fevers. The patient denied any radiation of the pain to the back or elsewhere. Patient denied any prior history of any abdominal problems. The patient went to an outside ER where he was diagnosed with underlying cholecystitis. The patient was treated with IV Zosyn in the emergency room at the other facility. The patient was transferred to [facility] because of insurance reasons. The patient underwent a CT scan of the abdomen and pelvis at the outside facility that showed evidence of gallbladder sludge with gallbladder wall thickening and pericholecystic fluid. The patient was also noticed to have uncontrolled blood sugars at the other facility. The patient had evidence of some acute kidney injury from the labs at the other facility. In the emergency room at [facility] [the patient was held in the emergency room because of lack of inpatient beds], the patient was noticed to be febrile. The patient also had underlying sinus tachycardia. Hospital Course The patient was admitted to inpatient medical surgical floor. A general surgery consult was called. The patient underwent a laparoscopic cholecystectomy on October 16, 2016. Postoperatively, the patient was started on a clear liquid diet and the patient's diet was advanced as tolerated to regular consistency diet without any significant gastrointestinal symptoms. Upon presentation to the hospital, the patient had evidence of sepsis secondary to underlying acute cholecystitis. However, the patient had no evidence of any underlying septic shock. The patient's blood cultures remained negative. The patient's gallbladder fluid culture was positive for Serratia liquefaciens that was sensitive to fluoroquinolones. Patient has underlying type 2 diabetes mellitus. The patient was admitted on sliding scale insulin. The patient's hemoglobin A1c was 6.8. The patient has underlying dyslipidemia. The patient's lipid panel showed low HDL. The patient also has underlying essential hypertension. He was resumed on LEDA inhibitors once his renal function was better. The patient had a stable hospital course. The patient was cleared by consultants to be discharged home. The patient denied any complaints at the time of discharge. Discharge Instructions 1. Carbohydrate controlled diet as tolerated. 2. Keep incisions clean and dry. May shower. Avoid tub baths and swimming for 2 weeks. Use mild soap and pat dry the incisions. 3. Take medications as needed for pain. 4. Call the surgeon or go to the nearest ER if you have severe abdominal pain despite pain medications. 5. Call the surgeon or go to the nearest ER if you notice any bleeding or secretions coming out of the incision sites. Also call the surgeon if you notice any blood in stool, if you have persistent fevers, or any other unusual signs or symptoms. 6. Follow-up with the surgeon Dr. Jaime in 7 days for incision check. 7. Avoid heavy lifting [more than 25 pounds] for 8 weeks. The patient verbalized understanding of his discharge instructions. At this time I would like to thank Dr. Jaime for seeing the patient, doing the necessary procedures, and providing clinical recommendations. Case discussed with Dr. Lopez. Home Meds Active Scripts Hydrocodone Bit-Acetaminophen (Hydrocodone Bit-APAP) 5-325MG Tablet, 1 TAB PO Q6H Y for PAIN LEVEL 6-10, #20 TAB Prov:ANDREW RUBI NP 10/19/16 Ciprofloxacin Hcl* (Ciprofloxacin Hcl*) 500 Mg Tablet, 500 MG PO BID, #20 TAB Prov:ANDREW RUBI NP 10/19/16 Docusate Sodium (Dok) 100 Mg Capsule, 100 MG PO BID, #20 CAP Prov:ANDREW RUBI NP 10/19/16 Reported Medications Latanoprost (Latanoprost) 2.5 Ml Drops, 1 DROP RIGHT EYE QHS, #1 BOTTLE 10/16/16 Aspirin (Low Dose Aspirin) 81 Mg Tablet., 81 MG PO DAILY, #30 TAB 10/16/16 Atorvastatin* (Atorvastatin*) 40 Mg Tablet, 40 MG PO QHS, #30 TAB 10/16/16 Metformin Hcl* (Metformin Hcl*) 1,000 Mg Tablet, 1000 MG PO WITH BREAKFAST DINNE , #30 TAB 10/16/16 Lisinopril* (Lisinopril*) 5 Mg Tablet, 5 MG PO DAILY, #30 TAB 10/16/16 Follow-up Plan Follow-up with Dr. Abhinav Jaime in 1 week. Primary Care Provider Not On Staff Doctor Time spent on discharge: > 30 minutes Pending Labs Name: LUCY WEAVER Age/Sex: 61/M Attend Dr: GILSON PATTON Acct: [id number] MR# : [id number] : 1955 [address] Admit: 10/16/16 Specimen: [id number] Status: Complete Miryea: 10/16/16-2158 Rcvd: 10/16-2227 Source: [facility]CGARRY Sp Descrip: Procedure Result Microbiology GRAM STAIN Final POLYMORPH. LEUKOCYTE NONE SEEN . NO ORGANISM SEEN BODY FLUID CULTURE Final Organism 1 SERRATIA LIQUEFACIENS QUANTITY 1+ S LIQUEFAC M.I.C. RX --------- --- CEFOTAXIME S CIPROFLOXACIN <=0.25 S GENTAMICIN <=1 S LEVOFLOXACIN <=0.12 S TOBRAMYCIN <=1 S TRIMETHOPRIM/SULFAMETHOXAZOLE <=20 S Laboratory Tests Test 10/18/16 17:51 10/18/16 20:17 10/19/16 03:15 10/19/16 08:30 Bedside Glucose 180mg/dL (70-220) 214mg/dL (70-220) 226mg/dL (70-220) 178mg/dL (70-220) Test 10/19/16 12:44 Bedside Glucose 211mg/dL (70-220) ANDREW RUBI NP Oct 19, 2016 13:04
[2016-10-19 15:29] VITALS: BP 139/75; RESP 20
== END 2016-10-19 14:45 | disposition home or self-care (01) | DRG 854 ==
LOC: E/R 05:17 → MS3 05:25 → MS1 05:25 → UNDOADMIN 05:25 → MS1 10-17 00:32
PROVIDERS: ADMIT Family Medicine; ATTEND Family Medicine
PROC: 0FT44ZZ Resection of Gallbladder, Percutaneous Endoscopic Approach (ICD-10-PCS; principal; 2016-10-16 19:00)
DX: A41.9 Sepsis, unspecified organism (principal); K81.0 Acute cholecystitis; N17.9 Acute kidney failure, unspecified; E11.9 Type 2 diabetes mellitus without complications; I10 Essential (primary) hypertension; E78.5 Hyperlipidemia, unspecified
CPT/HCPCS: 71010; 76705; 80053; 80061; 81001; 82962; 83036; 83605; 83735; 84100; 85025; 85610; 87040; 87070; 87075; 87086; 87102; 87116; 88304; 93005; J1815; J2270; J2370; J2405; J2543; J2765; J2795; J3010; J3475; J7030